=== PATIENT | male | born 1960 | race Caucasian/White ===

== ENCOUNTER 2017-09-26 10:30 | Emergency (ER) | payer MEDICAID, SELFPAY ==
[~2017-09-26] VITALS: Ht 188 cm; Wt 74.4 kg
[~2017-09-26 10:30] MED LIST: NO HOME MEDS
[2017-09-26 11:07] LABS: BASOPHILS % (AUTO) 0.4 % (0-1); EOSINOPHILS # (AUTO) 0.1 X10'3 (0-0.9); EOSINOPHILS % (AUTO) 1.2 % (0-6); HEMOGLOBIN 15.7 g/dl (14.0-17.9); LYMPHOCYTES # (AUTO) 1.2 X10'3 (1.1-4.8); LYMPHOCYTES % (AUTO) 28.1 % (21-51); MEAN CORPUSCULAR HEMOGLOBIN 34.5 PG (27.0-31.0); MEAN CORPUSCULAR HGB CONC 35.6 % (33.0-36.5); MEAN CORPUSCULAR VOLUME 96.9 FL (78-98); MEAN PLATELET VOLUME 7.5 FL (7.4-10.4); MONOCYTES # (AUTO) 0.4 X10'3 (0-0.9); MONOCYTES % (AUTO) 10.3 % (2-12); NEUTROPHILS # (AUTO) 2.6 X10'3 (1.8-7.7); PLATELET COUNT 205 X10'3 (140-440); RED BLOOD COUNT 4.54 X10'6 (4.70-6.10); WHITE BLOOD COUNT 4.3 X10'3 (4.5-11.0)
[2017-09-26 11:17] LABS: INR 0.9 INR; PROTHROMBIN TIME 9.5 SECONDS (9.0-12.0)
[2017-09-26 11:24] LABS: ALANINE AMINOTRANSFERASE 164 U/L (12-78); ALBUMIN 4.2 G/DL (3.4-5.0); ALBUMIN/GLOBULIN RATIO 1.3 (1.1-1.5); ALKALINE PHOSPHATASE 72 IU/L (46-116); ANION GAP 10 (8-16); ASPARTATE AMINO TRANSFERASE 150 U/L (10-37); BILIRUBIN,TOTAL 0.9 MG/DL (0.1-1.0); BLOOD UREA NITROGEN 8 MG/DL (7-18); CALCIUM 9.3 MG/DL (8.5-10.1); CHLORIDE 100 MMOL/L (99-107); CREATININE 0.89 MG/DL (0.60-1.10); GLUCOSE 93 MG/DL (70-104); POTASSIUM 4.5 MMOL/L (3.5-5.1); SODIUM 137 MMOL/L (135-145); TOTAL CARBON DIOXIDE 27.2 MMOL/L (24-32); TOTAL PROTEIN 7.4 G/DL (6.4-8.2); eGFR 88 ML/MIN
[2017-09-26 11:34] LABS: CLARITY,URINE CLEAR (Clear); COLOR,URINE YELLOW (Yellow); GLUCOSE, URINE NEGATIVE (Neg); KETONES,URINE NEGATIVE (Neg); LEUKOCYTE ESTERASE ,URINE NEGATIVE (Neg); NITRITES, URINE NEGATIVE (Neg); OCCULT BLOOD,URINE TRACE-INTACT (Neg); PROTEIN,URINE NEGATIVE (Neg); UA COLLECTION TYPE CLN CATCH MIDSTREAM; UROBILINOGEN,URINE 0.2 E.U/dL (0.2-1.0)
[2017-09-26 11:45] VITALS: BP 149/121
[2017-09-26 11:47] LABS: SQUAMOUS EPITHELIAL CELL,UR FEW /LPF (FEW)
[2017-09-26 11:48] LABS: BACTERIA,URINE NONE SEEN /HPF (Neg); RBC,URINE 0-2 /HPF (0-2); WBC,URINE NONE SEEN /HPF (0-4)
[2017-09-26 12:43] LABS: ETHANOL 0.019 GM/DL (0.0-0.010)
[2017-09-26 16:08] LABS: URINE AMPHETAMINE SCREEN NEGATIVE (Neg); URINE BARBITUATE SCREEN NEGATIVE (Neg); URINE BENZODIAZEPINES SCREEN NEGATIVE (Neg); URINE CANNABINOID SCREEN NEGATIVE (Neg); URINE COCAINE SCREEN NEGATIVE (Neg); URINE METHADONE SCREEN NEGATIVE (Neg); URINE OPIATE SCREEN NEGATIVE (Neg); URINE PHENCYCLIDINE SCREEN NEGATIVE (Neg)
== END 2017-09-26 15:25 | disposition left against medical advice (07) ==
LOC: ER 10:30
DX: R11.10 Vomiting, unspecified (principal); R42 Dizziness and giddiness; R53.83 Other fatigue; F17.200 Nicotine dependence, unspecified, uncomplicated; Z88.2 Allergy status to sulfonamides
CPT/HCPCS: 36415; 70450; 80053; 80305; 80320; 81001; 82140; 85025; 85610; 99285; J7030

== ENCOUNTER 2020-02-28 05:54 | Inpatient (IN) | payer OTHER ==
[~2020-02-28] VITALS: Ht 188 cm; Wt 75.9 kg
[2020-02-28] MEDS ORDERED: phenobarbital inj 500 MG in normal saline 250ml IV soln 250 ML IV ONE ×2 (06:40→08:00)
[2020-02-28] MEDS ORDERED: normal saline 1000ml 1,000 ML IV ONE (06:40)
[2020-02-28] MEDS ORDERED: thiamine 100mg/ml 2ml inj. IV ONE ×2 (06:40→13:00)
[2020-02-28] MEDS ORDERED: phenobarbital inj 260 MG in normal saline 100ml IV soln IV ONE ×6 (07:10→08:15)
[2020-02-28 07:11] LABS: BASOPHILS % (AUTO) 0.6 % (0-1); EOSINOPHILS # (AUTO) 0.2 X10'3 (0-0.9); EOSINOPHILS % (AUTO) 2.4 % (0-6); HEMATOCRIT 38.5 % (42.0-52.0); HEMOGLOBIN 13.2 g/dl (14.0-17.9); LYMPHOCYTES # (AUTO) 0.5 X10'3 (1.1-4.8); LYMPHOCYTES % (AUTO) 7.3 % (21-51); MEAN CORPUSCULAR HEMOGLOBIN 34.9 PG (27.0-31.0); MEAN CORPUSCULAR HGB CONC 34.3 g/dL (33.0-36.5); MEAN CORPUSCULAR VOLUME 101.5 FL (78-98); MEAN PLATELET VOLUME 9.6 FL (7.4-10.4); MONOCYTES # (AUTO) 0.9 X10'3 (0-0.9); MONOCYTES % (AUTO) 13.1 % (2-12); NEUTROPHILS # (AUTO) 5.3 X10'3 (1.8-7.7); NEUTROPHILS % (AUTO) 76.6 % (42-75); PLATELET COUNT 116 X10'3 (140-440); RED BLOOD COUNT 3.79 X10'6 (4.70-6.10); RED CELL DISTRIBUTION WIDTH 12.9 % (11.5-14.5)
[2020-02-28] MEDS: dextrose 5%-normal saline 1,000 ML IV SCH ×5 (07:26→10:40)
[2020-02-28 07:32] LABS: ALANINE AMINOTRANSFERASE 90 U/L (12-78); ALBUMIN 3.9 G/DL (3.4-5.0); ALBUMIN/GLOBULIN RATIO 1.2 (1.1-1.5); ALKALINE PHOSPHATASE 80 IU/L (46-116); ANION GAP 15 (8-16); ASPARTATE AMINO TRANSFERASE 70 U/L (10-37); BILIRUBIN,TOTAL 1.3 MG/DL (0.1-1.0); BLOOD UREA NITROGEN 28 MG/DL (7-18); BUN/CREATININE RATIO 21.1 (5.4-32.0); CALCIUM 9.3 MG/DL (8.5-10.1); CHLORIDE 103 MMOL/L (99-107); CREATININE 1.33 MG/DL (0.60-1.10); GLUCOSE 79 MG/DL (70-104); POTASSIUM 3.3 MMOL/L (3.5-5.1); SODIUM 139 MMOL/L (135-145); TOTAL CARBON DIOXIDE 20.8 MMOL/L (24-32); TOTAL PROTEIN 7.1 G/DL (6.4-8.2); eGFR 55 ML/MIN
--- NOTE | 2020-02-28 08:12 | NUR ---
NURSING SUPP NOTIFIED THAT PT IS BEING ADMITTED AND IN NEED OF A SITTER.
[2020-02-28] MEDS ORDERED: diazepam inj 5 MG/ML inj. IV ONE (08:45)
[2020-02-28 09:20] LABS: ETHANOL 0.176 GM/DL (0.0-0.010)
[2020-02-28 09:28] LABS: URINE AMPHETAMINE SCREEN NEGATIVE (Neg); URINE BARBITUATE SCREEN POSITIVE (Neg); URINE BENZODIAZEPINES SCREEN NEGATIVE (Neg); URINE CANNABINOID SCREEN NEGATIVE (Neg); URINE COCAINE SCREEN NEGATIVE (Neg); URINE METHADONE SCREEN NEGATIVE (Neg); URINE OPIATE SCREEN NEGATIVE (Neg); URINE PHENCYCLIDINE SCREEN NEGATIVE (Neg)
--- NOTE | 2020-02-28 09:45 | NUR ---
PT BEING TAKEN TO CT
[2020-02-28] MEDS ORDERED: mag hydrox/Alum hydrox/simeth 30ml oral suspension PO PRN (10:20)
[2020-02-28] MEDS ORDERED: magnesium 4gm in 100ml NS 100 ML IV PRN (10:20)
[2020-02-28] MEDS ORDERED: magnesium hydroxide 30ml (MOM) UD suspension PO PRN (10:20)
[2020-02-28] MEDS ORDERED: magnesium 2GM in 50ml NS 50 ML IV PRN (10:20)
[2020-02-28] MEDS ORDERED: haloperidol lactate 5mg/ml inj IM PRN (10:20)
[2020-02-28] MEDS ORDERED: ondansetron/PF 4mg/2ml inj IV PRN (10:20)
[2020-02-28] MEDS ORDERED: acetaminophen 325mg tablet PO PRN (10:20)
[2020-02-28] MEDS ORDERED: potassium Cl 20 mEq SR tablet PO PRN ×2 (10:20)
[2020-02-28] MEDS: thiamine inj. 100 MG, MVI, adult No.4 with vit. K 10 ML in dextrose 5% water 500ml 500 ML IV SCH ×3 (11:16)
--- NOTE | 2020-02-28 11:20 | NUR ---
Pt is sleeping. Respirations unlabored. NAD. Sitter at bedside.
[2020-02-28] MEDS: LORazepam 2 mg/ml vial IV PRN ×3 (12:41→21:21)
--- NOTE | 2020-02-28 12:44 | NUR ---
Pt refusing to stay in bed since Dr Tong was there to see pt. Ativan 4mg IVP given for agitation.
[2020-02-28] MEDS: thiamine 100mg tablet PO SCH ×2 (13:00→21:00)
--- NOTE | 2020-02-28 13:04 | NUR ---
Non-administered PO Thiamine for 1300 as pt is agitated and refusing to do what is asked of him at this time, including pills. Pt is currently getting a banana bag via IV.
[2020-02-28] MEDS ORDERED: Potassium Cl inj 20 MEQ in normal saline 1000ml 990 ML IV SCH (13:10)
--- NOTE | 2020-02-28 19:00 | NUR ---
Received report from VISCOSITY TESTERNIRAJ Nino. Pt. to follow shortly.
--- NOTE | 2020-02-28 19:15 | NUR ---
Patient arrived to floor via gurney. Pt. very sleepy. Transferred to bed with use of slide board and 4x assist. Pat remained sleepy thru out. MRSA swab collected and VS taken.
[2020-02-28 19:20] VITALS: BP 128/89
[2020-02-28] MEDS: K and/or MAG REPLACEMENT MC SCH (20:00)
--- NOTE | 2020-02-28 20:45 | NUR ---
Lety Hernández (pts' [phone]) called to check on patient. Informed her that patient is currently resting having recently received ativan for agitation. Advised her to get some rest, and that she can call in anytime during NOC shift if worried/concerned.
[2020-02-28] MEDS: enoxaparin 40mg/0.4ml syringe SQ SCH (21:30)
[2020-02-28 22:00] VITALS: BP 108/64
[2020-02-28] MEDS: potassium Cl 40MEQ/1/2NS 520ml 520 ML IV PRN (23:01)
[2020-02-29] MEDS: LORazepam 2 mg/ml vial IV PRN ×10 (00:17→23:44)
[2020-02-29 02:00] VITALS: BP 110/59
--- NOTE | 2020-02-29 03:12 | NUR ---
Called MD to inform of low BS of 58. New orders to change primary from NS to dextrose 5% in NS.
[2020-02-29] MEDS: dextrose 5%-normal saline 1,000 ML IV SCH ×2 (03:30→19:48)
--- NOTE | 2020-02-29 03:30 | NUR ---
cap blocker reported that she retook the accu check and BS up to 83.
[2020-02-29 06:00] VITALS: BP 105/76
[2020-02-29 06:08] LABS: BASOPHILS % (AUTO) 0.5 % (0-1); EOSINOPHILS # (AUTO) 0.3 X10'3 (0-0.9); EOSINOPHILS % (AUTO) 4.8 % (0-6); HEMATOCRIT 35.2 % (42.0-52.0); HEMOGLOBIN 12.2 g/dl (14.0-17.9); LYMPHOCYTES # (AUTO) 0.7 X10'3 (1.1-4.8); LYMPHOCYTES % (AUTO) 12.3 % (21-51); MEAN CORPUSCULAR HEMOGLOBIN 35.1 PG (27.0-31.0); MEAN CORPUSCULAR HGB CONC 34.6 g/dL (33.0-36.5); MEAN CORPUSCULAR VOLUME 101.6 FL (78-98); MEAN PLATELET VOLUME 9.3 FL (7.4-10.4); MONOCYTES % (AUTO) 16.8 % (2-12); NEUTROPHILS # (AUTO) 3.9 X10'3 (1.8-7.7); NEUTROPHILS % (AUTO) 65.6 % (42-75); PLATELET COUNT 98 X10'3 (140-440); RED BLOOD COUNT 3.46 X10'6 (4.70-6.10); RED CELL DISTRIBUTION WIDTH 12.5 % (11.5-14.5)
[2020-02-29 06:23] LABS: ALANINE AMINOTRANSFERASE 72 U/L (12-78); ALBUMIN 2.9 G/DL (3.4-5.0); ALKALINE PHOSPHATASE 66 IU/L (46-116); AMYLASE 30 U/L (25-115); ANION GAP 8 (8-16); ASPARTATE AMINO TRANSFERASE 52 U/L (10-37); BLOOD UREA NITROGEN 10 MG/DL (7-18); BUN/CREATININE RATIO 15.9 (5.4-32.0); CALCIUM 8.1 MG/DL (8.5-10.1); CHLORIDE 108 MMOL/L (99-107); CREATININE 0.63 MG/DL (0.60-1.10); GLUCOSE 85 MG/DL (70-104); LIPASE 155 U/L (73-393); MAGNESIUM 1.8 MG/DL (1.5-2.4); PHOSPHORUS 2.6 MG/DL (2.3-4.5); POTASSIUM 3.2 MMOL/L (3.5-5.1); SODIUM 141 MMOL/L (135-145); TOTAL CARBON DIOXIDE 25.5 MMOL/L (24-32); TOTAL PROTEIN 5.9 G/DL (6.4-8.2); eGFR > 90 ML/MIN
--- NOTE | 2020-02-29 06:44 | NUR ---
Problems reprioritized. Patient report given, questions answered & plan of care reviewed with Panfilo RN.
[2020-02-29] MEDS: folic acid 1mg/0.2ml inj IV SCH ×2 (08:00→14:25)
[2020-02-29] MEDS: K and/or MAG REPLACEMENT MC SCH ×2 (08:00→19:48)
[2020-02-29] MEDS: thiamine 100mg tablet PO SCH ×3 (08:00→19:49)
[2020-02-29] MEDS: thiamine inj. 100 MG, MVI, adult No.4 with vit. K 10 ML in dextrose 5% water 500ml 500 ML IV SCH ×3 (09:01)
[2020-02-29 12:46] VITALS: BP 129/78
[2020-02-29 18:00] VITALS: BP 124/78
[2020-02-29] MEDS: enoxaparin 40mg/0.4ml syringe SQ SCH (19:47)
[2020-02-29] MEDS: potassium Cl 40MEQ/1/2NS 520ml 520 ML IV PRN (19:50)
[2020-02-29 22:00] VITALS: BP 146/83
[2020-03-01] MEDS: LORazepam 2 mg/ml vial IV PRN ×9 (00:34→19:58)
[2020-03-01 02:00] VITALS: BP 144/82
--- NOTE | 2020-03-01 06:23 | NUR ---
Problems reprioritized. Patient report given, questions answered & plan of care reviewed with Piyush HEALY.
[2020-03-01 07:00] VITALS: BP 132/78
[2020-03-01 07:07] LABS: BASOPHILS % (AUTO) 0.7 % (0-1); EOSINOPHILS # (AUTO) 0.2 X10'3 (0-0.9); EOSINOPHILS % (AUTO) 3.6 % (0-6); HEMATOCRIT 36.4 % (42.0-52.0); HEMOGLOBIN 12.7 g/dl (14.0-17.9); LYMPHOCYTES # (AUTO) 0.6 X10'3 (1.1-4.8); LYMPHOCYTES % (AUTO) 13.9 % (21-51); MEAN CORPUSCULAR HEMOGLOBIN 34.9 PG (27.0-31.0); MEAN CORPUSCULAR HGB CONC 34.9 g/dL (33.0-36.5); MEAN CORPUSCULAR VOLUME 100.2 FL (78-98); MEAN PLATELET VOLUME 9.5 FL (7.4-10.4); MONOCYTES # (AUTO) 0.6 X10'3 (0-0.9); MONOCYTES % (AUTO) 14.8 % (2-12); NEUTROPHILS # (AUTO) 2.9 X10'3 (1.8-7.7); PLATELET COUNT 109 X10'3 (140-440); RED BLOOD COUNT 3.63 X10'6 (4.70-6.10); RED CELL DISTRIBUTION WIDTH 12.6 % (11.5-14.5); WHITE BLOOD COUNT 4.3 X10'3 (4.5-11.0)
[2020-03-01 07:29] LABS: ALANINE AMINOTRANSFERASE 65 U/L (12-78); ALBUMIN 2.9 G/DL (3.4-5.0); ALBUMIN/GLOBULIN RATIO 0.9 (1.1-1.5); ALKALINE PHOSPHATASE 67 IU/L (46-116); AMYLASE 29 U/L (25-115); ANION GAP 11 (8-16); ASPARTATE AMINO TRANSFERASE 53 U/L (10-37); BILIRUBIN,TOTAL 1.1 MG/DL (0.1-1.0); BLOOD UREA NITROGEN 4 MG/DL (7-18); BUN/CREATININE RATIO 7.1 (5.4-32.0); CALCIUM 8.1 MG/DL (8.5-10.1); CHLORIDE 106 MMOL/L (99-107); CREATININE 0.56 MG/DL (0.60-1.10); GLUCOSE 92 MG/DL (70-104); LIPASE 120 U/L (73-393); MAGNESIUM 1.5 MG/DL (1.5-2.4); PHOSPHORUS 1.7 MG/DL (2.3-4.5); POTASSIUM 3.1 MMOL/L (3.5-5.1); SODIUM 139 MMOL/L (135-145); TOTAL CARBON DIOXIDE 21.9 MMOL/L (24-32); eGFR > 90 ML/MIN
[2020-03-01] MEDS: thiamine inj. 100 MG, MVI, adult No.4 with vit. K 10 ML in dextrose 5% water 500ml 500 ML IV SCH ×3 (07:55)
[2020-03-01] MEDS: folic acid 1mg/0.2ml inj IV SCH (07:56)
[2020-03-01] MEDS: thiamine 100mg tablet PO SCH ×3 (07:59→19:58)
[2020-03-01] MEDS: potassium Cl 40MEQ/1/2NS 520ml 520 ML IV PRN (08:08)
[2020-03-01] MEDS: K and/or MAG REPLACEMENT MC SCH ×2 (08:09→19:58)
[2020-03-01] MEDS ORDERED: POTASSIUM PHOSHATE inj. 30 MMOL in NORMAL SALINE 500ml IV.SOLN IV ONE (09:40)
[2020-03-01 11:00] VITALS: BP 148/87
[2020-03-01] MEDS: dextrose 5%-normal saline 1,000 ML IV SCH ×2 (12:50→23:57)
[2020-03-01 15:00] VITALS: BP 134/84
[2020-03-01 18:00] VITALS: BP 151/90
--- NOTE | 2020-03-01 18:38 | NUR ---
Problems reprioritized. Patient report given, questions answered & plan of care reviewed with Romelia HEALY.
[2020-03-01] MEDS: enoxaparin 40mg/0.4ml syringe SQ SCH (19:54)
[2020-03-01 22:00] VITALS: BP 147/89
[2020-03-02 02:00] VITALS: BP 158/79
[2020-03-02 06:00] VITALS: BP 150/92
--- NOTE | 2020-03-02 06:00 | NUR ---
Patient in room PCU 3023. I have received report from Romelia HEALY and had the opportunity to ask questions and assume patient care.
[2020-03-02 07:18] LABS: BASOPHILS % (AUTO) 0.7 % (0-1); EOSINOPHILS # (AUTO) 0.1 X10'3 (0-0.9); EOSINOPHILS % (AUTO) 2.5 % (0-6); HEMATOCRIT 36.8 % (42.0-52.0); LYMPHOCYTES # (AUTO) 0.6 X10'3 (1.1-4.8); LYMPHOCYTES % (AUTO) 14.3 % (21-51); MEAN CORPUSCULAR HEMOGLOBIN 34.7 PG (27.0-31.0); MEAN CORPUSCULAR HGB CONC 35.2 g/dL (33.0-36.5); MEAN CORPUSCULAR VOLUME 98.6 FL (78-98); MEAN PLATELET VOLUME 9.4 FL (7.4-10.4); MONOCYTES # (AUTO) 0.7 X10'3 (0-0.9); MONOCYTES % (AUTO) 18.9 % (2-12); NEUTROPHILS # (AUTO) 2.5 X10'3 (1.8-7.7); NEUTROPHILS % (AUTO) 63.6 % (42-75); PLATELET COUNT 141 X10'3 (140-440); RED BLOOD COUNT 3.73 X10'6 (4.70-6.10); RED CELL DISTRIBUTION WIDTH 12.7 % (11.5-14.5); WHITE BLOOD COUNT 3.9 X10'3 (4.5-11.0)
[2020-03-02 07:49] LABS: ALANINE AMINOTRANSFERASE 67 U/L (12-78); ALKALINE PHOSPHATASE 75 IU/L (46-116); AMYLASE 28 U/L (25-115); ANION GAP 11 (8-16); ASPARTATE AMINO TRANSFERASE 55 U/L (10-37); BLOOD UREA NITROGEN 4 MG/DL (7-18); BUN/CREATININE RATIO 6.6 (5.4-32.0); CALCIUM 8.5 MG/DL (8.5-10.1); CHLORIDE 103 MMOL/L (99-107); CREATININE 0.61 MG/DL (0.60-1.10); GLUCOSE 81 MG/DL (70-104); LIPASE 100 U/L (73-393); MAGNESIUM 1.7 MG/DL (1.5-2.4); PHOSPHORUS 2.7 MG/DL (2.3-4.5); SODIUM 138 MMOL/L (135-145); TOTAL CARBON DIOXIDE 24.5 MMOL/L (24-32); TOTAL PROTEIN 6.1 G/DL (6.4-8.2); eGFR > 90 ML/MIN
[2020-03-02 07:56] LABS: POTASSIUM 2.6 MMOL/L (3.5-5.1)
[2020-03-02] MEDS: thiamine 100mg tablet PO SCH ×3 (08:00→21:12)
[2020-03-02] MEDS: K and/or MAG REPLACEMENT MC SCH ×2 (08:00→20:00)
[2020-03-02] MEDS: folic acid 1mg/0.2ml inj IV SCH (08:37)
[2020-03-02] MEDS: potassium Cl 40MEQ/1/2NS 520ml 520 ML IV PRN ×2 (09:28→21:20)
[2020-03-02 11:00] VITALS: BP 123/76
[2020-03-02] MEDS ORDERED: potassium Cl 20 mEq SR tablet PO PRN ×2 (11:45)
[2020-03-02] MEDS ORDERED: magnesium 4gm in 100ml NS 100 ML IV PRN (11:45)
[2020-03-02] MEDS ORDERED: magnesium Cl slow-release 64mg tablet PO PRN (11:45)
[2020-03-02] MEDS ORDERED: potassium Cl 40MEQ/1/2NS 520ml 520 ML IV PRN (11:45)
[2020-03-02] MEDS: LORazepam 2 mg/ml vial IV PRN ×2 (13:43)
[2020-03-02] MEDS: thiamine inj. 100 MG, MVI, adult No.4 with vit. K 10 ML in dextrose 5% water 500ml 500 ML IV SCH ×3 (13:43)
--- NOTE | 2020-03-02 13:55 | NUR ---
Unable to document vaccine review due to patient altered mental status.
[2020-03-02 15:00] VITALS: BP 128/79
[2020-03-02] MEDS: dextrose 5%-normal saline 1,000 ML IV SCH (16:02)
[2020-03-02 18:00] VITALS: BP 126/79
--- NOTE | 2020-03-02 18:28 | NUR ---
Problems reprioritized. Patient report given, questions answered & plan of care reviewed with Prudence HEALY.
[2020-03-02] MEDS: enoxaparin 40mg/0.4ml syringe SQ SCH (21:16)
--- NOTE | 2020-03-02 21:22 | NUR ---
potassium 40meq in 1/2ns 520ml was not scanning. and it was d/c'd after 1 dose. and pt supposed to received 2 doses. confirmed with pharmacy and agreed to administer under d/c'd medication on eMar.
[2020-03-02 22:00] VITALS: BP 147/90
[2020-03-03 02:00] VITALS: BP 135/74
[2020-03-03 06:00] VITALS: BP 137/74
--- NOTE | 2020-03-03 06:21 | NUR ---
Problems reprioritized. Patient report given, questions answered & plan of care reviewed with NIRAJ BECKWITH.
[2020-03-03 06:27] LABS: ALANINE AMINOTRANSFERASE 60 U/L (12-78); ALBUMIN 2.7 G/DL (3.4-5.0); ALBUMIN/GLOBULIN RATIO 0.8 (1.1-1.5); ALKALINE PHOSPHATASE 73 IU/L (46-116); AMYLASE 29 U/L (25-115); ANION GAP 7 (8-16); ASPARTATE AMINO TRANSFERASE 37 U/L (10-37); BILIRUBIN,TOTAL 0.8 MG/DL (0.1-1.0); BLOOD UREA NITROGEN 4 MG/DL (7-18); CALCIUM 8.7 MG/DL (8.5-10.1); CHLORIDE 107 MMOL/L (99-107); CREATININE 0.57 MG/DL (0.60-1.10); GLUCOSE 114 MG/DL (70-104); LIPASE 113 U/L (73-393); MAGNESIUM 1.7 MG/DL (1.5-2.4); POTASSIUM 3.6 MMOL/L (3.5-5.1); SODIUM 138 MMOL/L (135-145); TOTAL CARBON DIOXIDE 24.1 MMOL/L (24-32); TOTAL PROTEIN 5.9 G/DL (6.4-8.2); eGFR > 90 ML/MIN
--- NOTE | 2020-03-03 06:55 | NUR ---
Patient in room PCU 3023. I have received report from NIRAJ TAYLOR and had the opportunity to ask questions and assume patient care.
[2020-03-03 07:17] LABS: BASOPHILS # (AUTO) 0.1 X10'3 (0-0.2); BASOPHILS % (AUTO) 1.3 % (0-1); EOSINOPHILS # (AUTO) 0.2 X10'3 (0-0.9); EOSINOPHILS % (AUTO) 4.3 % (0-6); HEMATOCRIT 39.6 % (42.0-52.0); HEMOGLOBIN 13.9 g/dl (14.0-17.9); LYMPHOCYTES # (AUTO) 0.8 X10'3 (1.1-4.8); LYMPHOCYTES % (AUTO) 19.6 % (21-51); MEAN CORPUSCULAR HEMOGLOBIN 35.1 PG (27.0-31.0); MEAN CORPUSCULAR HGB CONC 35.1 g/dL (33.0-36.5); MEAN CORPUSCULAR VOLUME 99.9 FL (78-98); MEAN PLATELET VOLUME 9.4 FL (7.4-10.4); MONOCYTES # (AUTO) 0.8 X10'3 (0-0.9); MONOCYTES % (AUTO) 20.1 % (2-12); NEUTROPHILS # (AUTO) 2.2 X10'3 (1.8-7.7); NEUTROPHILS % (AUTO) 54.7 % (42-75); PLATELET COUNT 162 X10'3 (140-440); RED BLOOD COUNT 3.96 X10'6 (4.70-6.10); RED CELL DISTRIBUTION WIDTH 12.6 % (11.5-14.5); WHITE BLOOD COUNT 4.1 X10'3 (4.5-11.0)
[2020-03-03] MEDS: folic acid 1mg/0.2ml inj IV SCH (08:00)
[2020-03-03] MEDS: K and/or MAG REPLACEMENT MC SCH ×2 (08:00→20:00)
[2020-03-03] MEDS: thiamine inj. 100 MG, MVI, adult No.4 with vit. K 10 ML in dextrose 5% water 500ml 500 ML IV SCH ×3 (08:00)
--- NOTE | 2020-03-03 08:48 | NUR ---
PAGER ID: [phone] MESSAGE: [id number]: ROE - SWALLOW EVAL COMPLETE, DIET ORDERED, OK TO CHANGE FOLIC ACID AND THIAMINE TO PO? NURSE JOBY [id number]
--- NOTE | 2020-03-03 08:50 | NUR ---
KATIE CALLED BACK: NEW ORDER RECEIVED: CHANGE IV THIAMINE AND FOLIC ACID TO PO
[2020-03-03] MEDS: folic acid 1mg tablet PO SCH (09:04)
[2020-03-03] MEDS: thiamine 100mg tablet PO SCH ×3 (09:04→19:27)
[2020-03-03] MEDS: dextrose 5%-normal saline 1,000 ML IV SCH (09:05)
[2020-03-03] MEDS: multivitamins, therapeutics tablet PO SCH (09:05)
[2020-03-03 11:00] VITALS: BP 90/60
[2020-03-03 11:03] LABS: PLATELET ESTIMATE NORMAL; TOTAL CELLS COUNTED 100
[2020-03-03 11:05] LABS: ROULEAUX 1+
[2020-03-03 11:06] LABS: SPHEROCYTES FEW
[2020-03-03 15:00] VITALS: BP 112/65
[2020-03-03] MEDS: normal saline 1000ml 1,000 ML IV SCH (16:23)
[2020-03-03 18:00] VITALS: BP 144/83
--- NOTE | 2020-03-03 18:32 | NUR ---
Problems reprioritized. Patient report given, questions answered & plan of care reviewed with NIRAJ HOU.
--- NOTE | 2020-03-03 18:35 | NUR ---
Patient in room PCU 3028. I have received report from Reyna, and had the opportunity to ask questions and assume patient care.
[2020-03-03] MEDS: enoxaparin 40mg/0.4ml syringe SQ SCH (19:28)
[2020-03-03 22:00] VITALS: BP 119/71
[2020-03-04] MEDS: normal saline 1000ml 1,000 ML IV SCH ×3 (01:55→12:14)
[2020-03-04 01:57] VITALS: BP 138/84
[2020-03-04 06:00] VITALS: BP 126/83
[2020-03-04 06:02] LABS: EOSINOPHILS # (AUTO) 0.2 X10'3 (0-0.9); HEMOGLOBIN 12.8 g/dl (14.0-17.9); MEAN CORPUSCULAR HEMOGLOBIN 35.7 PG (27.0-31.0); RED BLOOD COUNT 3.59 X10'6 (4.70-6.10)
[2020-03-04 06:06] LABS: BASOPHILS % (AUTO) 0.6 % (0-1); EOSINOPHILS % (AUTO) 4.9 % (0-6); HEMATOCRIT 35.8 % (42.0-52.0); LYMPHOCYTES % (AUTO) 24.2 % (21-51); MEAN CORPUSCULAR HGB CONC 35.8 g/dL (33.0-36.5); MEAN CORPUSCULAR VOLUME 99.6 FL (78-98); MEAN PLATELET VOLUME 9.3 FL (7.4-10.4); MONOCYTES # (AUTO) 0.8 X10'3 (0-0.9); MONOCYTES % (AUTO) 20.3 % (2-12); PLATELET COUNT 184 X10'3 (140-440); RED CELL DISTRIBUTION WIDTH 12.9 % (11.5-14.5)
--- NOTE | 2020-03-04 06:15 | NUR ---
Patient in room PCU 3028. I have received report from NIRAJ Escobar and had the opportunity to ask questions and assume patient care.
[2020-03-04 06:26] LABS: ALANINE AMINOTRANSFERASE 49 U/L (12-78); ALBUMIN 2.5 G/DL (3.4-5.0); ALBUMIN/GLOBULIN RATIO 0.8 (1.1-1.5); ALKALINE PHOSPHATASE 64 IU/L (46-116); AMYLASE 35 U/L (25-115); ANION GAP 7 (8-16); ASPARTATE AMINO TRANSFERASE 30 U/L (10-37); BILIRUBIN,TOTAL 0.5 MG/DL (0.1-1.0); BLOOD UREA NITROGEN 8 MG/DL (7-18); BUN/CREATININE RATIO 12.1 (5.4-32.0); CALCIUM 8.3 MG/DL (8.5-10.1); CHLORIDE 108 MMOL/L (99-107); CREATININE 0.66 MG/DL (0.60-1.10); GLUCOSE 94 MG/DL (70-104); LIPASE 167 U/L (73-393); MAGNESIUM 1.6 MG/DL (1.5-2.4); PHOSPHORUS 3.6 MG/DL (2.3-4.5); POTASSIUM 3.5 MMOL/L (3.5-5.1); SODIUM 141 MMOL/L (135-145); TOTAL CARBON DIOXIDE 25.9 MMOL/L (24-32); TOTAL PROTEIN 5.6 G/DL (6.4-8.2); eGFR > 90 ML/MIN
--- NOTE | 2020-03-04 06:36 | NUR ---
Problems reprioritized. Patient report given, questions answered & plan of care reviewed with Adela-NIRAJ.
--- NOTE | 2020-03-04 06:43 | NUR ---
Patient in room PCU 3028. I have received report from NIRAJ Coreas and had the opportunity to ask questions and assume patient care.
--- NOTE | 2020-03-04 07:11 | NUR ---
Problems reprioritized. Patient report given, questions answered & plan of care reviewed with NIRAJ Buitrago.
[2020-03-04] MEDS: multivitamins, therapeutics tablet PO SCH ×2 (08:00→08:40)
[2020-03-04] MEDS: thiamine 100mg tablet PO SCH ×3 (08:40→20:12)
[2020-03-04] MEDS: folic acid 1mg tablet PO SCH (08:40)
[2020-03-04 11:00] VITALS: BP 136/75
[2020-03-04 15:00] VITALS: BP 135/71
[2020-03-04 18:00] VITALS: BP 144/84
--- NOTE | 2020-03-04 18:23 | NUR ---
Patient in room PCU 3028. I have received report from ARSH MEJIA RN and had the opportunity to ask questions and assume patient care.
--- NOTE | 2020-03-04 18:30 | NUR ---
SBAR report given to Yobany HEALY at beside, questions answered, emar reviewed.
--- NOTE | 2020-03-04 18:34 | NUR ---
rounded with Dr. Tong sbar report given at approximately 1430 EMAR reviewed, patient condition given, and assessment
[2020-03-04] MEDS: K and/or MAG REPLACEMENT MC SCH (20:00)
[2020-03-04] MEDS: enoxaparin 40mg/0.4ml syringe SQ SCH (20:12)
[2020-03-04 22:00] VITALS: BP 132/81
[2020-03-05 02:00] VITALS: BP 137/75
[2020-03-05 06:00] VITALS: BP 136/79
--- NOTE | 2020-03-05 06:15 | NUR ---
Problems reprioritized. Patient report given, questions answered & plan of care reviewed with Telma HEALY.
--- NOTE | 2020-03-05 07:01 | NUR ---
Patient in room PCU 3028. I have received report from Yobany HEALY and had the opportunity to ask questions and assume patient care.
[2020-03-05] MEDS: multivitamins, therapeutics tablet PO SCH ×2 (07:50→08:00)
[2020-03-05] MEDS: folic acid 1mg tablet PO SCH (07:50)
[2020-03-05] MEDS: thiamine 100mg tablet PO SCH (07:51)
[2020-03-05] MEDS: normal saline 1000ml 1,000 ML IV SCH (07:56)
[2020-03-05] MEDS: K and/or MAG REPLACEMENT MC SCH (08:00)
[2020-03-05 11:36] VITALS: BP 137/82
--- NOTE | 2020-03-05 13:15 | NUR ---
patient appeared to be stable no shaking or ETOH withdrawals noticed. Seen by DR Tong and case management. patient is for DC. All dc instructions given to patient .. patient DC home via private car with family to home in stable condition.
== END 2020-03-05 12:23 | disposition home or self-care (01) | DRG 896 ==
LOC: ER 05:55 → ED HOLD 10:19 → EDBEDREQ 18:40 → PCU 3S 19:10
PROVIDERS: ADMIT Family Medicine; ATTEND Family Medicine
DX: F10.231 Alcohol dependence with withdrawal delirium (principal); N17.0 Acute kidney failure with tubular necrosis; G93.41 Metabolic encephalopathy; R44.3 Hallucinations, unspecified; E86.0 Dehydration; E87.6 Hypokalemia; F43.10 Post-traumatic stress disorder, unspecified; G89.29 Other chronic pain; Y90.6 Blood alcohol level of 120-199 mg/100 ml; E83.39 Other disorders of phosphorus metabolism; Z78.1 Physical restraint status; Z80.0 Family history of malignant neoplasm of digestive organs; Z80.3 Family history of malignant neoplasm of breast; Z88.2 Allergy status to sulfonamides
CPT/HCPCS: 36415; 70450; 80053; 80305; 80320; 82140; 82150; 82948; 83690; 83735; 84100; 84132; 85007; 85025; 85610; 87081; 92508; 92616; 93005; 96365; 97110; 97116; 97162; 97530; 99285; G0378; J1650; J2060; J2560; J3360; J3411; J3480; J3490; J7030; J7042; J7060